=== PATIENT | female | born 1955 ===

== ENCOUNTER 2025-07-12 14:35 | Outpatient (AMB) | payer MEDICARE, MEDICAID, SELFPAY ==
--- NOTE | 2025-07-12 14:46 | A.PHYSOV_ITS ---
Vital Signs 07/12/25 14:47 Height 5 ft 4 in Weight 140 lb BMI 24.0 Intake Visit Reasons: recent fall-back/hip pain Intake Note: Patient is a 70 year old female in office today for a follow up on a back and hip pain. [employer] Required: No Allergies No Known Allergies Allergy (Verified 07/12/25 14:47) HPI Comments Details: History of Present Illness The patient is a 70 year old female presenting for evaluation of low back pain a fter a recent fall. During the fall, she hit the toilet and the tub. She reports pain in her low back that radiates down the entire side and into the leg, as well as generalized body aches and arm pain. Following the fall, her doctor ordered x-rays which were negative for any fractures. An MRI of the spine has been ordered. For pain management, she has been taking gabapentin without relief. She has tried ibuprofen in the past and has taken muscle relaxers a long time ago. She denies any history of kidney disease or being on blood thinners. Pain Description - Onset: The patient's pain began after a recent fall where she hit the toilet and tub. - Location: The pain is primarily in the low back. - Radiation: Pain radiates from the low back, down the entire side, and into the leg. - Associated Symptoms: The patient also reports that her whole body hurts and she has arm pain. - Exacerbating Factors: Pain is worsened by bending down and activities such as picking up a child. - Severity: Her current pain medication, gabapentin, is not providing relief. Results - Imaging: Reports that x-rays were completed and showed no fractures. [facility] Surgical History H/O shoulder surgery (Unknown) Social History Patient Tobacco Use Status: Never used Tobacco Review of Systems Narrative Review of Systems - Constitutional: Reports generalized body aches. - Musculoskeletal: Reports low back pain and arm pain. - Neurological: Reports pain radiating down the leg. - All other systems reviewed and are negative. Physical Exam Exam Exam: Physical Exam - Back: Tenderness to palpation over the low back. - Back: Pain with lumbar extension and flexion. - Skin: No bruising was visualized on the back during examination. Full range of motion bilateral lower extremities. No calf pain or edema. She is neurovascularly intact. Vital Signs: BMI result Body Mass Index 24.0 Assessment & Plan Assessment & Plan (1) Contusion of hip, right: Code(s): S70.01XA - Contusion of right hip, initial encounter Category: Medical Qualifiers: Encounter type: initial encounter Qualified Code(s): S70.01XA - Contusion of right hip, initial encounter (2) Lumbar contusion: Code(s): S30.0XXA - Contusion of lower back and pelvis, initial encounter Category: Medical Qualifiers: Encounter type: subsequent encounter Qualified Code(s): S30.0XXD - Contusion of lower back and pelvis, subsequent encounter Plan Pain Management - Affect: The patient states she is not so good due to the pain. - Analgesia: Current medication includes gabapentin, which is reported as not helping. - Activities of Daily Living: Pain impacts her entire body and is triggered by bending or lifting. - Aberrant Drug Related Behaviors: The patient expresses a dislike for taking pain medication. Plan Patient was informed and verbally consented to the use of an ambient scribe for clinic note documentation during this visit. 1. Acute Low Back Pain Secondary To Fall The patient's acute low back pain is likely from a contusion due to her recent fall. X-rays were negative for fracture, and an MRI of the spine is pending. For symptomatic relief of severe pain, a prescription for Percocet will be provided for as-needed use. It was recommended that she proceed with the scheduled MRI and follow up afterward to review the results. Further interventions such as injections are deferred at this time to allow the traumatic injury to heal, as steroids could impede the process. Physical therapy was offered but declined by the patient. Discussion Notes I discussed with the patient that her pain is likely from a contusion from her recent fall and that it should improve with time. I explained that while I am prescribing Percocet, she should only take it for severe pain, not on a regular schedule. We discussed the plan for her to get her scheduled MRI, and I advised her to follow up with me after the imaging is complete to review the results. I explained that we should avoid injections at this time to allow the trauma to heal, as steroids can interfere with healing. Physical therapy was offered as an option, but she declined. Patient Instructions - Your back pain is likely due to a deep bruise (contusion) from your recent fall, which should get better over time. - A prescription for Percocet has been sent to your pharmacy for severe pain. - Use this medication only when you have severe pain; do not take it four times a day as the instructions may suggest. - Please get the MRI of your back that your other doctor ordered. - Please schedule a follow-up appointment with me after your MRI to discuss the results and next steps. - For now, we want to give your body time to heal, so we will not be doing any injections. Medications: New oxycodone-acetaminophen 5-325 mg (Percocet) Partial Fill upon patient request. 1 tab PO Q6H PRN 28 tabs 0RF pain 7 days S30.0XXD - Contusion of lower back and pelvis, subsequent encounter, S70.01XA - Contusion of right hip, initial encounter Coding Level of Care Code Tele Est Pt Level 3 (43826) Diagnoses Contusion of right hip, initial encounter S70.01XA Encounter type: initial encounter Lumbar contusion, subsequent encounter S30.0XXD Encounter type: subsequent encounter
[2025-07-12 14:47] VITALS: BMI 24.0
== END 2025-07-12 14:58 | disposition home or self-care (01) ==
LOC: HO.HPHYS 14:36
PROVIDERS: PCP Family Medicine; Visit Provider Physician Assistant
DX: S70.01XA Contusion of right hip, initial encounter (principal); S30.0XXD Contusion of lower back and pelvis, subsequent encounter
CPT/HCPCS: 99213

== ENCOUNTER → 2025-07-12 14:35 | Outpatient (BNVA) | payer MEDICARE, MEDICAID, SELFPAY | PROVIDERS: PCP Family Medicine; Visit Provider Physician Assistant | DX: M54.50 Low back pain, unspecified (principal); S70.01XA Contusion of right hip, initial encounter; S30.0XXA Contusion of lower back and pelvis, initial encounter | CPT/HCPCS: 99212 ==